=== PATIENT | female | born 1975 | race Caucasian/White ===

== ENCOUNTER → 2016-09-05 | Outpatient (CLI) | payer OTHER ==
[~2016-09-05] MED LIST: MOTRIN800 MG PO; PERCOCET 5-3251 EACH PO; PRENATAL 1+1)(P1 TAB PO; SURFAK240 MG PO; VITAMIN D400 UNIT PO
== END | disposition disaster alternative care site (69) ==
LOC: GLAB 07:18
DX: Z32.00 Encounter for pregnancy test, result unknown (principal)